=== PATIENT | male | born 1950 | race Caucasian/White ===

== ENCOUNTER → 2017-08-06 | Outpatient (REF) | payer MEDICARE, MEDICAID, SELFPAY | LOC: LAB 07:49 | PROVIDERS: Visit Provider Internal Medicine | DX: R06.00 Dyspnea, unspecified (principal); R09.02 Hypoxemia | CPT/HCPCS: 36415; 82550; 83880; 84484; 85025; 85379 ==

== ENCOUNTER → 2017-09-06 | Outpatient (REF) | payer MEDICARE, MEDICAID, SELFPAY | LOC: LAB 11:42 | PROVIDERS: Visit Provider Internal Medicine | DX: J02.9 Acute pharyngitis, unspecified (principal) | CPT/HCPCS: 87070; 87077; 87147; 87186; 87400 ==

== ENCOUNTER → 2017-09-16 | Outpatient (REF) | payer MEDICARE, SELFPAY | LOC: LAB 16:23 | PROVIDERS: Visit Provider Internal Medicine | DX: J18.9 Pneumonia, unspecified organism (principal) | CPT/HCPCS: 87070; 87077; 87205 ==

== ENCOUNTER → 2017-09-17 | Outpatient (REF) | payer MEDICARE, MEDICAID, SELFPAY | LOC: LAB 08:07 | PROVIDERS: Visit Provider Internal Medicine | DX: J18.9 Pneumonia, unspecified organism (principal) | CPT/HCPCS: 80048; 85025 ==

== ENCOUNTER → 2017-09-18 | Outpatient (REF) | payer MEDICARE, MEDICAID, SELFPAY | LOC: LAB 08:42 | PROVIDERS: Visit Provider Internal Medicine | DX: Z51.81 Encounter for therapeutic drug level monitoring (principal); J18.9 Pneumonia, unspecified organism | CPT/HCPCS: 80048; 80202 ==

== ENCOUNTER → 2017-09-20 | Outpatient (REF) | payer MEDICARE, MEDICAID, SELFPAY | LOC: LAB 08:39 | PROVIDERS: Visit Provider Internal Medicine | DX: Z51.81 Encounter for therapeutic drug level monitoring (principal) | CPT/HCPCS: 80048; 80202 ==

== ENCOUNTER → 2017-09-24 | Outpatient (REF) | payer MEDICARE, MEDICAID, SELFPAY | LOC: LAB 07:21 | PROVIDERS: Visit Provider Internal Medicine | DX: E87.6 Hypokalemia (principal) ==

== ENCOUNTER → 2017-09-26 10:58 | Outpatient (REF) | payer MEDICARE, MEDICAID, SELFPAY ==
[2017-09-27 08:28] LABS: HEMOLYSIS < 15 (0-50); Potassium 3.9 mmol/L (3.4-5.1); Sodium 135 mmol/L (137-145)
== END ==
LOC: LAB 10:58
PROVIDERS: Visit Provider Internal Medicine
DX: E87.6 Hypokalemia (principal)
CPT/HCPCS: 80051

== ENCOUNTER → 2018-01-08 10:40 | Outpatient (CLI) | payer MEDICARE, MEDICAID, SELFPAY ==
--- NOTE | 2018-01-08 | DI.ECHO.S_ITS ---
[facility]---------+ [facility] +---------+ : : [address] : [address] : : : : [id number] : : : : Phone: [phone]+ Echocardiogram Report + + :Name: COLLEEN HOWARD Study Date: 01/08/2018 Height: 72 in : :[facility] Weight: 184 lb : : Gender: Male BSA: 2.1 m2 : :: 1950 Age: 67 yrs BP: 155/100 mmHg: :Reason For Study: Pulmonary - Hypertension : : Performed By: Camille Kessler : :Referring: FABBY MADISON : + + Interpretation Summary Mild concentric left ventricular hypertrophy with ejection fraction 60-65%. Grade I diastolic dysfunction. Moderately dilated right ventricle with normal right ventricular systolic function. Moderately dilated right atrium. Mild aortic valve sclerosis. Mild aortic regurgitation. Mild mitral annular calcification. Severe tricuspid regurgitation. The right ventricular systolic pressure is estimated at 96 mmHg assuming a right atrial pressure of 3 mm Hg. Severe pulmonary hypertension. Moderately enlarged ascending aorta. Procedure: A two-dimensional transthoracic echocardiogram with color flow and Doppler was performed. The study quality was technically adequate. There is no prior echocardiogram noted for this patient. The patient was in normal sinus rhythm during the exam. Left Ventricle: The left ventricle is normal in size. There is mild concentric left ventricular hypertrophy. The ejection fraction is estimated to be 60-65%. There are no focal wall motion abnormalities. Assessment of diastolic parameters indicates a relaxation abnormality of the left ventricle, consistent with normal filling pressures. Right Ventricle: The right ventricle is moderately dilated. The right ventricular systolic function is normal. Atria: The left atrial size is normal. The right atrium is moderately dilated. The interatrial septum is intact with no evidence for an atrial septal defect. Mitral Valve: The mitral valve leaflets appear mildly thickened, but open well. There is mild mitral annular calcification. There is no mitral regurgitation noted. Aortic Valve: The aortic valve is trileaflet. The aortic valve opens well. There is mild aortic valve sclerosis. There is mild aortic regurgitation. Tricuspid Valve: The tricuspid valve leaflets are thin and pliable. There is severe tricuspid regurgitation. The right ventricular systolic pressure is estimated at 96 mmHg assuming a right atrial pressure of 3 mm Hg. There is severe pulmonary hypertension. Pulmonic Valve: The pulmonic valve is not well seen, but is grossly normal. There is trace pulmonic regurgitation. Great Vessels: The aortic root is mildly dilated. The ascending aorta is moderately enlarged. The IVC is of normal diameter and collapses greater than 50% with a sniff. This suggests a low right atrial pressure of 3 mm Hg. Pericardium/ Pleura There is no pericardial effusion. There is no pleural effusion. MMode/2D Measurements & Calculations LVIDd: 4.0 cm Ao root diam: 3.9 cm LVIDs: 2.2 cm Aortic Jxn: 3.3 cm FS: 44.0 % asc Aorta Diam: 4.3 cm EPSS: 0.93 cm Ao Arch Diam (Prox Trans): 2.8 cm IVSd: 1.2 cm LVPWd: 0.93 cm LV mcbride. diameter/BSA (cm/m^2): 1.9 LV sys. diameter/BSA (cm/m^2): 1.1 LA dimension: 3.5 cm RA long axis: 3.3 cm LA A2 area: 25.3 cm2 RA area: 24.0 cm2 LA A4 area: 19.2 cm2 RA vol: 147.2 ml LA length (vol): 5.9 cm RA : 71.6 ml/m2 LA vol: 70.1 ml IVC diam: 1.2 cm LA vol index: 34.1 ml/m2 RVDd major: 6.4 cm RVD1 (basal): 4.8 cm RVD2 (mid): 3.9 cm NATY (plan): 1.9 cm2 Doppler Measurements & Calculations Ao V2 max: 126.7 cm/sec MV E max kevin: 32.7 cm/sec Ao V2 mean: 72.9 cm/sec MV A max kevin: 61.7 cm/sec Ao max P.4 mmHg MV E/A: 0.53 Ao mean P.7 mmHg Med Peak E' Kevin: 5.3 cm/sec Ao V2 VTI: 19.8 cm E/E' med: 6.2 Lat Peak E' Kvein: 7.3 cm/sec E/E' lat: 4.5 E/e' average: 5.4 MV dec time: 0.16 sec MV P1/2t: 44.0 msec TR max kevin: 482.1 cm/sec MV P1/2t max kevin: 32.5 cm/sec TR max P.0 mmHg MVA(P1/2t): 5.0 cm2 PA V2 max: 54.8 cm/sec PA V2 mean: 35.4 cm/sec PA mean P.59 mmHg PA Accel Time: 0.11 sec Electronically signed by: Isaac Powell on Reading Physician:01/08/2018 05:47 PM
== END ==
DX: I27.20 Pulmonary hypertension, unspecified (principal)
CPT/HCPCS: 93306

== ENCOUNTER → 2018-02-05 13:17 | Outpatient (CLI) | payer MEDICARE, MEDICAID, SELFPAY ==
--- NOTE | 2018-02-05 | DI.CT.S_ITS ---
PROCEDURE: CT ABDOMEN WO/W CON INDICATIONS: LIVER CANCER TECHNIQUE: 4 phase scanning was performed. Non-contrast 5 mm axial sections acquired from the diaphragm to the iliac crests. Following the administration of intravenous contrast, 5 mm thick arterial-phase, portal venous-phase, and 5-minute delayed phase images were acquired through the liver. 5 mm thick coronal and sagittal reformats were performed. For radiation dose reduction, the following was used: automated exposure control, adjustment of mA and/or kV according to patient size. COMPARISON: [facility], CT, ABDOMEN W&WO CONTRAST, 02/22/2016, 12:54. [facility], CT, ABDOMEN W&WO CONTRAST, 08/31/2016, 14:29. [facility], CT, ABDOMEN W&WO CONTRAST, 07/26/2017, 13:17. FINDINGS: Image quality: Excellent. Lung bases: There is mild scarring and atelectasis redemonstrated in the lung bases. Heart size is normal. Liver: There are scattered foci of high density throughout the right hepatic lobe consistent with prior chemoembolization. There is also a hypoattenuating nonenhancing ovoid cavity within the inferior right hepatic lobe corresponding to a prior site of radiofrequency ablation. Within the inferior right hepatic lobe in segment 6, there is an ovoid mass demonstrating washout on delayed images measuring approximately 3.9 x 3.0 cm in transverse dimension with exophytic subcapsular extension laterally along the right hepatic margin. The finding is new from the prior study and is consistent with [id number] carcinoma. Elsewhere, there are multiple additional new smaller foci of washout including in the left hepatic lobe in segment 2 measuring 1 point by 1.2 cm and 0.6 x 0.6 cm, in segment 4A of the left hepatic lobe measuring 1.1 x 1.2 cm, and laterally in segment 7 of the right hepatic lobe measuring 1.4 x 0.8 cm with corresponding slight hypervascular enhancement. The findings are consistent with recurrent multifocal hepatocellular carcinoma. Other solid organs: The gallbladder demonstrates mild wall enhancement with borderline thickening but no calcified gallstones. No pericholecystic fluid. Biliary system is non dilated. Pancreas is normal in morphology. Spleen is normal in size and enhancement. No adrenal nodules. Kidneys demonstrate no hydronephrosis. There are bilateral renal cysts. Nodes and vessels: No retroperitoneal or mesenteric adenopathy by size criteria. There are multiple mildly prominent subcentimeter upper abdominal suzie hepatis and celiac axis lymph nodes redemonstrated which are likely reactive. sally and inferior vena cava are normal in size. There are small gastroesophageal and splenic varices. Bowel and peritoneum: Visualized bowel loops are normal in caliber. No free fluid or air. Bones: No suspicious bony lesions. No vertebral body compression fractures. Miscellaneous: No ventral hernias. IMPRESSION: 1. Multiple new areas of washout demonstrated in the liver including an exophytic lesion in segment 6 of the right hepatic lobe. The findings are consistent with recurrent multifocal hepatocellular carcinoma. 2. Post treatment changes redemonstrated in the right hepatic lobe status post prior chemoembolization and radiofrequency ablation. 3. Gastroesophageal and splenic varices compatible with portal hypertension. 4. Mild gallbladder wall enhancement and colonic thickening is nonspecific in the context of liver disease. No calcified gallstones. Recommend correlation clinically for possible cholecystitis. Dictated by: Tawanda Meyer M.D. on 02/05/2018 at 16:18 Approved by: Tawanda Meyer M.D. on 02/05/2018 at 16:36
[2018-02-05 13:50] LABS: Add Manual Diff / Slide Review NO; Basophils Percent Auto 1.1 % (0-2); Eosinophils Percent Auto 1.3 % (2-4); Hematocrit 44.8 % (41-53); Hemoglobin 15.4 g/dL (13.5-17.5); Lymphocytes Percent Auto 19.7 % (25-40); Mean Corpuscular HGB Conc 34.4 % (30-36); Mean Corpuscular Hemoglobin 33.7 PG (26-34); Mean Corpuscular Volume 98.2 fL (80-100); Monocytes Percent Auto 8.9 % (3-14); Neutrophils Absolute Auto 3500 /uL (3000-5900); Platelet Count 124 X10^3/uL (150-400); Red Blood Cell Count 4.57 X10^6/uL (4.5-5.9); Red Cell Distribution Width 13.5 % (11.6-14.8); White Blood Cell Count 5.1 X10^3/uL (4.5-11.0)
[2018-02-05 13:57] LABS: Prothrombin Time 11.2 SECONDS (10.1-12.7)
[2018-02-05 14:00] LABS: PTT Partial Thromboplastin Tim 34 SECONDS (26.4-36.2)
[2018-02-05 14:02] LABS: Alanine Aminotransferase 45 IU/L (21-72); Albumin 3.8 g/dL (3.5-5.0); Albumin Globulin Ratio 1.1 (1.0-2.8); Alkaline Phosphatase 156 U/L (38-126); Aspartate Aminotransferase 77 IU/L (17-59); Bilirubin Total 0.9 mg/dL (0.2-1.3); Blood Urea Nitrogen 15 mg/dL (9-20); Calcium 9.4 mg/dL (8.4-10.2); Carbon Dioxide 31 mmol/L (22-32); Chloride 102 mmol/L (98-107); Estimated Glomerular Filt Rate > 60.0 mL/min (>60); Globulin 3.6 g/dL (1.7-4.1); Glucose 115 mg/dL (80-110); HEMOLYSIS < 15 (0-50); Potassium 3.7 mmol/L (3.4-5.1); Sodium 143 mmol/L (137-145); Total Protein 7.4 g/dL (6.3-8.2)
[2018-02-07 14:27] LABS: Alpha Fetoprotein 102.7 ng/mL (< 6.1)
== END ==
PROVIDERS: Visit Provider Radiology Diagnostic Radiology
DX: C22.0 Liver cell carcinoma (principal); K76.6 Portal hypertension; I85.10 Secondary esophageal varices without bleeding; I86.8 Varicose veins of other specified sites
CPT/HCPCS: 36415; 74170; 80053; 82105; 85025; 85610; 85730; Q9967

== ENCOUNTER → 2018-02-11 11:55 | Outpatient (CLI) | payer MEDICARE, MEDICAID, SELFPAY ==
--- NOTE | 2018-02-11 | DI.CT.S_ITS ---
PROCEDURE: CT CHEST HIGH RESOLUTION INDICATIONS: PULMONARY HYPERTENSION TECHNIQUE: Noncontrast 1.0 and 5.0 mm thick contiguous axial sections from the pulmonary apex to the posterior costophrenic angles, with 7 mm thick coronal and sagittal MIP reformats. 1 mm thick dynamic expiratory images acquired through the upper, mid, and lower lungs. 1.0 mm thick axial sections acquired from the manuel to the posterior costophrenic angles in the prone end-inspiration position. For radiation dose reduction, the following was used: automated exposure control, adjustment of mA and/or kV according to patient size. COMPARISON: [facility], CT, CT ABDOMEN WO/W CON, 02/05/2018, 14:17. [facility], CT, PE STUDY (CTA CHEST), 06/09/2017, 12:31. FINDINGS: Image quality: Excellent. Lungs: There are mild paraseptal and centrilobular emphysematous changes within the lung apices. There is mild linear scarring in the lung bases bilaterally. There is mild bronchial thickening in the lung bases without traction bronchiectasis. No subpleural reticular opacities or honeycombing. Dynamic images demonstrate no evidence of air-trapping. The trachea and central airways appear patent. Pleura: No pleural effusions or pneumothorax. Mediastinum: Heart size is normal. No pericardial effusion. There is enlargement of the pulmonary arteries, with the main pulmonary artery measuring up to 4 cm in diameter compatible with pulmonary arterial hypertension. There is mild aneurysmal dilatation of the ascending thoracic aorta measuring up to 4.2 cm. The aortic arch is also mildly dilated, measuring up to 3.3 cm. The proximal descending thoracic aorta measures up to 3.2 cm. The distal descending aorta at the level of the diaphragmatic hiatus measures up to 3.3 cm. Esophagus is normal in caliber. Bones and chest wall: No suspicious bony lesions. No vertebral body compression fractures. Abdomen: Visualized upper abdomen demonstrates a few hyperdense foci in the visualized liver consistent with prior chemoembolization. The liver is nodular in contour compatible with cirrhosis. IMPRESSION: 1. Enlargement of the pulmonary arteries consistent with history of pulmonary arterial hypertension. 2. Mild centrilobular and paraseptal emphysematous changes within the upper lobes. 3. Mild perihilar bronchial wall thickening is nonspecific and may reflect sequelae of reactive airways disease, bronchiolitis, or prior aspiration. 4. No definite evidence of chronic interstitial lung disease. 5. 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 6. Posttreatment changes within the visualized liver. Recommend correlation with recent abdominal CT. Dictated by: Tawanda Meyer M.D. on 02/11/2018 at 14:01 Approved by: Tawanda Meyer M.D. on 02/11/2018 at 14:13
== END ==
DX: I27.20 Pulmonary hypertension, unspecified (principal); I77.810 Thoracic aortic ectasia
CPT/HCPCS: 71250